=== PATIENT | female | born 2000 | race African-American/Black ===

== ENCOUNTER 2021-07-27 21:54 | Emergency (ER) | payer OTHER ==
[~2021-07-27] VITALS: Ht 157.5 cm; Wt 90.7 kg
[2021-07-27 22:11] VITALS: BP 206/113
== END 2021-07-27 22:47 | disposition home or self-care (01) ==
LOC: ER 21:54
PROVIDERS: Student in an Organized Health Care Education/Training Program
DX: J06.9 Acute upper respiratory infection, unspecified (principal); Z20.822 Contact with and (suspected) exposure to COVID-19; R19.7 Diarrhea, unspecified